=== PATIENT | female | born 1945 | race Caucasian/White ===

== ENCOUNTER 2017-09-02 13:51 | Outpatient (CLI) | payer MEDICARE ==
--- NOTE | 2017-09-02 14:49 | CT ---
CT ARTERIOGRAM CHEST WITH IV CONTRAST AND 3D MIP IMAGING: History: Dyspnea. Breast cancer. FINDINGS: There is good contrast opacification of the pulmonary arteries and thoracic aorta with normal branchi ng of the great vessels. No mediastinal adenopathy. Lungs are hyperinflated with scattered areas of s carring. Peripheral interstitial thickening in the left upper lobe is likely related to prior radiati on. Peripherally calcified bilateral breast implants are apparent. At the superior and lateral aspect of the left breast implant, internal curvilinear density contains some calcification. Within the partially visualized upper abdomen, lobular cysts are visible within the liver. IMPRESSION: 1. No CT evidence of pulmonary embolus. 2. Parenchymal scarring, likely related to radiation, within the left upper lobe. 3. Probable intracapsular rupture left breast implant. POS: [facility]
[2017-09-02] MEDS ORDERED: Iopamidol 370 76% 100 ML VIAL ONE (14:51)
== END 2017-09-02 13:52 | disposition home or self-care (01) ==
LOC: CT 13:51
PROVIDERS: ATTEND Radiology Radiation Oncology
DX: C50.919 Malignant neoplasm of unspecified site of unspecified female breast (principal); R06.02 Shortness of breath; R07.89 Other chest pain; Z98.82 Breast implant status
CPT/HCPCS: 71275; 82565

== ENCOUNTER 2017-10-07 13:00 | Outpatient (CLI) | payer MEDICARE ==
--- NOTE | 2017-10-07 14:05 | RAD ---
PA AND LATERAL CHEST: Indication: Dyspnea. Comparison: CTA thorax, 09-02-17 FINDINGS: There is some persistent parenchymal opacity within the left upper lobe when compared to the prior CT examination. The right lung remains clear. There are bilateral breast implants. There is a right IJ chest wall port in place. No acute osseous abnormality is evident. IMPRESSION: Persistent parenchymal opacity in the left upper lobe as seen on the comparison chest CT. This is lik naveen related to radiation fibrotic change. If there is concern for pneumonia or mass, a follow up CT e xamination is recommended. POS: [facility]
== END 2017-10-07 13:01 | disposition home or self-care (01) ==
LOC: RAD 13:00
PROVIDERS: ATTEND Internal Medicine Critical Care Medicine
DX: R06.00 Dyspnea, unspecified (principal); R91.8 Other nonspecific abnormal finding of lung field
CPT/HCPCS: 71046

== ENCOUNTER 2017-10-28 09:23 | Outpatient (CLI) | payer MEDICARE ==
--- NOTE | 2017-10-28 11:27 | RAD ---
CHEST 2 VIEWS: Date: 10/28/17 HISTORY: Dyspnea. COMPARISON: 10/07/17 study. FINDINGS: Heart size within normal limits. Mediastinal structures are unremarkable. There is some parenchymal c hange in the left upper lobe, which is stable. Right-sided MediPort catheter is present. No interval change since the prior study. IMPRESSION: Stable exam. POS: [facility]
== END 2017-10-28 09:24 | disposition home or self-care (01) ==
LOC: RAD 09:23
PROVIDERS: ATTEND Internal Medicine Critical Care Medicine
DX: R06.00 Dyspnea, unspecified (principal)
CPT/HCPCS: 71046

== ENCOUNTER 2017-11-03 09:50 | Outpatient (CLI) | payer MEDICARE | END 2017-11-03 09:51 | disposition home or self-care (01) | LOC: BICMAMMO 09:50 | PROVIDERS: ATTEND Internal Medicine | DX: M85.89 Other specified disorders of bone density and structure, multiple sites (principal); Z78.0 Asymptomatic menopausal state | CPT/HCPCS: 77080 ==

== ENCOUNTER 2017-12-04 08:53 | Outpatient (CLI) | payer MEDICARE ==
--- NOTE | 2017-12-04 11:15 | RAD ---
CHEST TWO VIEWS: History: Dyspnea. Comparison: 10-07-17 FINDINGS: Heart size and mediastinum are within normal limits. Right sided Mediport catheter is present. There is tenting to the diaphragmatic pleura on the left. This is a stable finding. Post-operative changes of the cervical spine are seen. Parenchymal scarring in the left upper lobe is also stable. IMPRESSION: No acute changes. Stable exam. POS: [facility]
== END 2017-12-04 08:54 | disposition home or self-care (01) ==
LOC: RAD 08:53
PROVIDERS: ATTEND Internal Medicine Critical Care Medicine
DX: R06.00 Dyspnea, unspecified (principal)
CPT/HCPCS: 71046; 80053

== ENCOUNTER 2018-01-20 14:00 | Outpatient (CLI) | payer MEDICARE ==
--- NOTE | 2018-01-20 17:18 | ULT ---
THYROID ULTRASOUND: 01/20/18 HISTORY: Palpable thyroid nodule. TECHNIQUE: Multiplanar vargas scale and color doppler images were obtained in a thyroid ultrasound. FINDINGS: The thyroid lobes are enlarged measuring 5.1 and 4.1 cm in length on the right and left, respectively . There are solid appearing nodules in the right thyroid lobe. The largest seen in the upper pole me asuring 1.3 cm in greatest dimension. This is isoechoic to the thyroid parenchyma and well circumscri bed without suspicious calcifications. The nodules in the left thyroid lobe are predominantly solid b ut do demonstrate some cystic features. These nodules often do not demonstrate suspicious calcificati ons. IMPRESSION: Multinodular thyroid. The largest nodule is seen in the upper pole of the right thyroid lobe and is a TIRADS category 3 lesion. This is less than 1.5 cm in size and no further followup or FNA is recomm ended per recent recommendations. POS: [facility]
== END 2018-01-20 14:01 | disposition home or self-care (01) ==
LOC: BICULT 14:00
PROVIDERS: ATTEND Internal Medicine Hematology & Oncology
DX: E04.2 Nontoxic multinodular goiter (principal)
CPT/HCPCS: 76536

== ENCOUNTER 2018-01-29 14:36 | Outpatient (CLI) | payer MEDICARE | END 2018-01-29 14:37 | disposition home or self-care (01) | LOC: BICMAMMO 14:36 | PROVIDERS: ATTEND Internal Medicine Hematology & Oncology | DX: Z08 Encounter for follow-up examination after completed treatment for malignant neoplasm (principal); Z85.3 Personal history of malignant neoplasm of breast; Z98.82 Breast implant status | CPT/HCPCS: 77063; 77067 ==

== ENCOUNTER 2018-03-12 12:47 | Outpatient (CLI) | payer MEDICARE ==
[~2018-03-12 12:47] MED LIST: Gadobenate Dimeglumine 529 MG/1 ML (20ML VIAL) ONE
--- NOTE | 2018-03-13 10:17 | MRI ---
BILATERAL BREAST MRI WITH AND WITHOUT IV CONTRAST: Date: 03/12/18 HISTORY: Left breast cancer. Status post surgery, chemo/radiation. Abnormal mammogram of 01/29/18. FINDINGS: Comparison made with the noncontrasted breast MRI of 12/12/17 and mammograms of 01/29/18. No suspicious masses or abnormal postcontrast enhancement are seen. There are postop changes in the l eft breast. Bilateral prepectoral silicone breast implants again noted with radial folds. No Linguini sign is seen to suggest intracapsular rupture of the implant. No extracapsular silicone is seen on e ither side to suggest extracapsular rupture. A small amount of edema in the left breast is again noted. Skin thickening in the left breast is like ly due to previous radiation therapy. No lymphadenopathy is seen in the axillary or internal mammary chains. The visualized osseous structu res are unremarkable. Multiple cysts in the liver are again noted. Though no suspicious findings are seen on the current breast MRI, the calcifications noted on the prachi mogram are suspicious and should be biopsied. IMPRESSION: BIRADS Category 4 - suspicious abnormality. Biopsy of the left breast calcifications noted on mammogr am of 01/29/18 is recommended. CODE T.
== END 2018-03-12 12:48 | disposition home or self-care (01) ==
LOC: BICMRI 12:47
PROVIDERS: ATTEND Internal Medicine Hematology & Oncology
DX: C50.412 Malignant neoplasm of upper-outer quadrant of left female breast (principal); R92.1 Mammographic calcification found on diagnostic imaging of breast
CPT/HCPCS: 82565; C8908; A9577

== ENCOUNTER 2018-06-02 10:15 | Outpatient (CLI) | payer MEDICARE ==
--- NOTE | 2018-06-02 10:45 | RAD ---
PA AND LATERAL CHEST: Date: 06/02/18 HISTORY: Dyspnea. FINDINGS: Comparison made with exam of 12/04/17. FINDINGS: Right-sided Port-A-Cath remains in place. The heart size is normal. The lungs are well expanded witho ut focal areas of consolidation, pneumothoraces, or pleural effusions. Tenting of the diaphragmatic p leura on the left is stable. Parenchymal scarring left upper lobe is stable. No lobar consolidation, pneumothoraces, or pleural effusions are seen. Postop changes of the cervical spine are again seen. B reast implants are present. IMPRESSION: Stable exam. No acute process. POS: [facility]
== END 2018-06-02 10:16 | disposition home or self-care (01) ==
LOC: RAD 10:15
PROVIDERS: ATTEND Internal Medicine Critical Care Medicine
DX: R06.00 Dyspnea, unspecified (principal)
CPT/HCPCS: 71046

== ENCOUNTER 2018-07-17 11:47 | Day surgery (SDC) | payer MEDICARE ==
[2018-07-16 11:19] VITALS: BMI 24.7
[2018-07-17] MEDS ORDERED: Heparin 5,000 UNITS/ML VIAL ONE (12:56)
[2018-07-17] MEDS ORDERED: Bupivacaine/Epinephrine 0.25% 30 ML VIAL ONE ×2 (14:57→14:58)
[2018-07-17] MEDS ORDERED: Gentamicin 80 MG/2 ML VIAL ONE ×4 (14:57→17:35)
[2018-07-17] MEDS ORDERED: Sodium Chloride 0.9% 10 ML ONE ×2 (14:58→17:21)
[2018-07-17] MEDS ORDERED: Fentanyl 100 MCG/2 ML VIAL ONE ×3 (14:59→18:48)
[2018-07-17] MEDS ORDERED: Ondansetron ODT 4 MG TAB ONE (20:43)
--- NOTE | 2018-07-20 15:10 | OP ---
DATE OF PROCEDURE: 07/17/2018 PREOPERATIVE DIAGNOSIS: Bilateral capsular contracture. POSTOPERATIVE DIAGNOSIS: Bilateral capsular contracture. PROCEDURES: 1. Bilateral capsulectomy (.50 ). 2. Bilateral implant exchange following capsulectomy ( [id number]). OPERATIVE FINDINGS: A calcified capsule was found on the anterior surface of the left implant and circumferentially on the left. DESCRIPTION OF PROCEDURE: Following induction of adequate anesthesia, the patient was prepped and draped in the usual sterile fashion in supine position. Attention was first turned to the right breast. An inframammary crease incision was made. Dissection was carried sharply down through the underlying subcutaneous tissue to the underlying capsule. A circumferential capsulectomy was then performed on the identified prepectoral implants. The pocket was copiously irrigated and inspected for meticulous hemostasis. After this was satisfactorily assured, it was again irrigated with triple antibiotic solution as well as 50% Betadine solution. Antibiotic beads were placed prior to placement of a [place] XTRA high-profile 380 mL implant. The pocket was then reinspected prior to closure with 2-0 PDS suture for the deep superficial fascia layer followed by 3-0 PDS suture and 3-0 Monocryl for the skin. A similar procedure was done on each side. The left-sided implant was a 415 mL XTRA high-profile implant. This was chosen based on a sizer, which was chosen for symmetry. The patient tolerated procedure well. Job ID: [id number]
== END 2018-07-17 21:28 | disposition home or self-care (01) ==
LOC: SDC 11:47
PROVIDERS: ATTEND Plastic Surgery
PROC: 0HWU0JZ Revision of Synthetic Substitute in Left Breast, Open Approach (ICD-10-PCS; principal; 2018-07-17)
PROC: 0HWT0JZ Revision of Synthetic Substitute in Right Breast, Open Approach (ICD-10-PCS; 2018-07-17)
DX: T85.44XA Capsular contracture of breast implant, initial encounter (principal); M19.90 Unspecified osteoarthritis, unspecified site; G95.89 Other specified diseases of spinal cord; Z85.3 Personal history of malignant neoplasm of breast; Z79.899 Other long term (current) drug therapy; Z98.890 Other specified postprocedural states
CPT/HCPCS: 19340; 19371; C1713; C1789; 88304; J0131; J0690; J1580; J1642; J1644; J3010; J3370; J3490; Q0162